=== PATIENT | male | born 1970 | race Caucasian/White ===

== ENCOUNTER → 2018-07-18 | Outpatient (CLI) | payer OTHER | LOC: COL.RAD 08:15 | DX: K82.8 Other specified diseases of gallbladder (principal) ==

== ENCOUNTER → 2018-07-28 | Outpatient (CLI) | payer OTHER | LOC: COL.RAD 07-25 08:34 | DX: K82.8 Other specified diseases of gallbladder (principal) | CPT/HCPCS: A9537 ==

== ENCOUNTER → 2018-08-04 | Outpatient (CLI) | payer OTHER | LOC: COL.RAD 07:09 | DX: K76.0 Fatty (change of) liver, not elsewhere classified (principal); N20.0 Calculus of kidney; N32.89 Other specified disorders of bladder; M47.815 Spondylosis without myelopathy or radiculopathy, thoracolumbar region | CPT/HCPCS: Q9967 ==

== ENCOUNTER → 2018-09-23 | Outpatient (CLI) | payer OTHER ==
[2018-09-23] VITALS (10 sets, daily range): BP systolic 134–161; BP diastolic 75–96; PULSE 63–70
[~2018-09-23] MED LIST: ASPIRIN E.C. 8181 MG PO; BYSTOLIC10 MG PO; CORRECTOL5 MG PO; CRESTOR20 MG PO; GLUCOPHAGE1000 MG PO; HYGROTON 2525 MG/TAB PO; JARDIANCE25 PO; LEADER CLE17 GM/Dose PO; PRINIVIL40 MG PO; TRULICITY1.5 MG/0.5 SQ
[2018-09-23 10:25] LABS: INR 1.1 (0.8-3.0); PROTHROMBIN TIME 13.1 SECONDS (9.7-12.8)
--- NOTE | 2018-09-23 10:55 | NUR ---
PT TAKEN INTO CT ROOM AND PLACED ON TABLE. MONITORING EQUIPMENT PLACED ON PT. IMAGES TAKEN AND SENT TO .
--- NOTE | 2018-09-23 11:05 | NUR ---
PROCEDURE COMPLETED. MONITORING EQUIPMENT REMOVED. PT ASSISTED TO SIT UP AND TRANSFER TO WHEELCHAIR. SITE IS [facility].
--- NOTE | 2018-09-23 13:04 | NUR ---
PT IS TAKEN TO LOBBY AND THEN TO POV
== END ==
LOC: COL.RAD 09:30
PROVIDERS: Internal Medicine Gastroenterology
DX: K74.60 Unspecified cirrhosis of liver (principal)

== ENCOUNTER → 2019-11-30 | Outpatient (CLI) | payer OTHER | LOC: COL.RAD 10:16 | DX: N20.0 Calculus of kidney (principal); K74.60 Unspecified cirrhosis of liver; R16.1 Splenomegaly, not elsewhere classified; N32.89 Other specified disorders of bladder; R31.9 Hematuria, unspecified | CPT/HCPCS: Q9967 ==